=== PATIENT | male | born 1970 | race Caucasian/White ===

== ENCOUNTER 2024-02-22 17:53 | Outpatient (CLI) | payer BC, SELFPAY ==
--- NOTE | 2024-02-22 18:15 | MR_ITS ---
[address] [address] Phone:?[phone] Fax:?[phone] Referring Physician Information: Ji Gutierrez [address] [facility] [address] Phone:?[phone] Fax:?[phone] Patient:?Alvaro Johnson D.O.B:?1970 Sex:?Male Phone:?[phone] [facility] MRN:?[id number] Exam Date:?02/22/2024 EXAM: MR LUMBAR SPINE WITHOUT CONTRAST CLINICAL INFORMATION: 53-year-old male with low back and lower extremity pain. COMPARISON: Lumbar spine radiographs dated 02/10/2024. TECHNICAL INFORMATION: Sagittal T2, sagittal T1, sagittal STIR, axial T2, and axial T1-weighted MR images of the lumbar spine on a 1.5 Shasha magnet. CONTRAST: None. SEDATION: None. INTERPRETATION: Lordotic alignment of 5 nonrib-bearing lumbar vertebral bodies with shallow chronic Scheuermann-type endplate Schmorl's nodes spanning T11-12 through L1-2, mild degenerative endplate disruption/edema spanning L2-3 through L5-S1, and no spondylolysis, vertebral collapse, acute fracture, or destructive osseous lesion. Normal pre and paravertebral soft tissues. Conus medullaris positioned at T12-L1, with normal configuration of the terminal nerve roots. L5-S1: Moderate posterior disc degeneration, 3-4 mm retrolisthesis, dorsal annular fissure/5 mm AP broad-based protrusion, and 8 mm SI x 4 mm AP caudally extruded right posterolateral disc herniation causing moderate right subarticular stenosis with descending right S1 root impingement. Normal facets and patent foramina. L4-5: Mild disc degeneration, 2 mm retrolisthesis, diffuse annular bulge, normal facets, and no stenosis or impingement. L3-4: Mild disc degeneration, dorsal annular fissure, diffuse annular bulge, normal facets, and mild bilateral foraminal stenosis. L2-3 through T11-12: Normal dorsal disc contours and normal facets. No change from 02/10/2024 allowing for differences in modality. CONCLUSION: Multilevel lumbar degenerative changes with specifics as follows: 1. L5-S1 moderate subarticular impingement of the descending right S1 nerve root by a caudally extruded disc herniation. 2. Mild discogenic degenerative changes at L3-4 and L4-5 without stenosis or impingement. 3. No spondylolysis, vertebral collapse, acute fracture, or destructive osseous lesion. PDB Electronically signed on 02/25/2024 1:49:00 AM by Shankar Thomas M.D.
== END 2024-02-22 17:54 | disposition home or self-care (01) ==
LOC: MRI 17:54
PROVIDERS: PCP Family Medicine; Visit Provider Physician Assistant
DX: M54.30 Sciatica, unspecified side (principal); M51.27 Other intervertebral disc displacement, lumbosacral region; M51.369 Other intervertebral disc degeneration, lumbar region without mention of lumbar back pain or lower extremity pain
CPT/HCPCS: 72148